=== PATIENT | female | born 1975 | race African-American/Black ===

== ENCOUNTER 2017-09-03 13:19 | Emergency (ER) | payer MEDICAID ==
[~2017-09-03] VITALS: Ht 167.6 cm; Wt 80.0 kg
[2017-09-03] MEDS ORDERED: SODIUM CHLORIDE 0.9% 1,000 ML IV ONE (14:07)
[2017-09-03] MEDS ORDERED: LORAZEPAM 2MG/ML CPJ IV ONE (14:15)
[2017-09-03 14:44] LABS: BASOPHILS % 0.4 % (0.0-2.0); EOSINOPHILS % 0.9 % (0.0-5.0); HEMATOCRIT. 24.4 % (36.0-48.0); HEMOGLOBIN. 7.3 g/dL (12.0-16.0); LYMPHOCYTES % 35.8 % (20.0-50.0); MEAN CORPUSCULAR HEMOGLOBIN 19.1 pg (28.0-32.0); MEAN CORPUSCULAR VOLUME 63.8 fL (81.0-99.0); MEAN PLATELET VOLUME 8.1 fl (7.4-10.4); MONOCYTES % 6.9 % (2.0-8.0); PLATELET 440 x1000/uL (130-400); RED BLOOD CELL COUNT 3.83 mill/uL (4.2-5.4); RED CELL DISTRIBUTION WIDTH 21.3 % (11.6-14.6)
[2017-09-03 14:49] LABS: CHLORIDE 106 mEq/L (98-107)
[2017-09-03 14:52] LABS: INR 1.1; PARTIAL THROMBOPLASTIN TIME 24.3 sec (23.4-31.0); PROTHROMBIN TIME 11.7 sec (9.4-11.6)
[2017-09-03 15:24] LABS: PLATELET ESTIMATE SLIGHTLY INCREASED
[2017-09-03 16:40] VITALS: BP 118/71
== END 2017-09-03 17:13 | disposition home or self-care (01) ==
LOC: ER 13:19
DX: G90.8 Other disorders of autonomic nervous system (principal); D64.9 Anemia, unspecified; R55 Syncope and collapse
CPT/HCPCS: 36415; 71045; 80053; 83690; 84443; 84484; 85025; 85610; 85730; 93005; 96361; 96374; 99285; J2060; J7030